=== PATIENT | male | born 1985 | race Caucasian/White ===

== ENCOUNTER 2017-10-12 15:19 | Emergency (ER) | payer BC ==
[2017-10-12] MEDS ORDERED: KETOROLAC TROMETHAMINE INJ/PF 30 MG/1 ML SDV IV ONE (16:56)
[2017-10-12] MEDS ORDERED: DIPHENHYDRAMINE HCL 50 MG/ML VIAL IV ONE (16:56)
[2017-10-12] MEDS ORDERED: PROCHLORPERAZINE EDISYLATE INJ 10 MG/2 ML VIAL IV ONE (16:56)
[2017-10-12] MEDS ORDERED: IPRATROPIUM/ALBUTEROL 0.5-2.5 MG/3 ML AMPUL NEB ONE (17:01)
--- NOTE | 2017-10-12 17:03 | ER Document Report ---
HPI - HPI Pain Level: 4 Notes: Patient is a 32-year-old male with no significant past medical history who presents to the ED complaining of feeling feverish, nasal congestion/discharge, sinus pressure/sinus headache, dry semiproductive cough, nausea/vomiting 10 days. Patient states that he has been having difficulties keeping fluids down over the last few days and believes that his intermittent headache has been causing his nausea. Patient does not have any abdominal pain. He has taken some pwax-mnm-wzexqen meds with minimal relief. Patient states that there was an illness spreading around his house initially and when he got it it never went away. He denies any smoking or IV drug use. Denies any drug allergies. Denies any head injury, neck pain, changes in vision/speech/mentation/hearing, sore throat, chest pain, palpitations, syncope, shortness of breath, wheeze, dyspnea, abdominal pain, urinary retention, dysuria, hematuria, loss of control of bowel or bladder, numbness/tingling, saddle anesthesia, muscle paralysis/ weakness, or rash. - ROS Systems Reviewed and Negative: Yes All other systems reviewed and negative - CONSTITUTIONAL Constitutional: DENIES: Fever, Chills - EENT EENT: DENIES: Sore Throat, Ear Pain, Eye problems - NEURO Neurology: REPORTS: Headache - Sinus, Weakness. DENIES: Vision blurred, Dizzinesss / Vertigo - CARDIOVASCULAR Cardiovascular: DENIES: Chest pain - RESPIRATORY Respiratory: REPORTS: Coughing. DENIES: Trouble Breathing - GASTROINTESTINAL Gastrointestinal: DENIES: Abdominal Pain, Black / Bloody Stools - URINARY Urinary: DENIES: Dysuria, Urgency, Frequency - MUSCULOSKELETAL Musculoskeletal: DENIES: Extremity pain Past Medical History - Social History Smoking Status: Never Smoker Family History: Reviewed & Not Pertinent Patient has suicidal ideation: No Patient has homicidal ideation: No Renal/ Medical History: Denies: Hx Peritoneal Dialysis Vertical Provider Document - CONSTITUTIONAL Agree With Documented VS: Yes Notes: PHYSICAL EXAMINATION: GENERAL: Well-appearing, well-nourished and in no acute distress. A&Ox4. Answers questions appropriately. Moves comfortably w/o notable distress HEAD: Atraumatic, normocephalic. EYES: Pupils equal round and reactive to light, extraocular movements intact, sclera anicteric, conjunctiva are normal. Vis dupont intact. No nystagmus. ENT: EAC clear b/l. TM's intact b/l without erythema, fluid, or perforation. Nares patent and with clear/yellow discharge. oropharynx no erythema without exudates. No tonsilar hypertrophy without erythema or exudate. No palatine shift. Uvula midline. No tongue protrusion. No drooling, hoarseness, or airway compromise. Moist mucous membranes. + b/l maxillary sinus tenderness. NECK: Normal range of motion, supple without lymphadenopathy. No rigidity/ meningismus. Kernig/brudzinski negative. LUNGS: wheezes b/l base. No retractions HEART: Regular rate and rhythm without murmurs, rubs, gallops. ABDOMEN: Soft, nontender, nondistended abdomen. No guarding, no rebound. No masses appreciated. Normal bowel sounds present. No CVA tenderness bilaterally. NEUROLOGICAL: Cranial nerves grossly intact 2-12. NIH 0. Normal speech, normal gait. Normal sensory, motor exams. KATHLEEN's intact. Reflexes 2+. Pronator drift neg. Romberg neg. PSYCH: Normal mood, normal affect. SKIN: Warm, Dry, normal turgor, no rashes or lesions noted. - INFECTION CONTROL TRAVEL OUTSIDE OF THE [place] IN LAST 30 DAYS: No Course - Re-evaluation Re-evalutation: 10/12/17 18:45 Patient is a 32-year-old male who presents to the ED with a moderate pneumonia of the right middle lobe. CBC showed an elevated white blood cell count at 22.2 with a left shift. CMP and lipase are unremarkable for any acute pathology. See chest x-ray result. Patient has received 2 L normal saline and was given Toradol, Benadryl, and Compazine. Overall, patient states that he feels much better. P.o. challenge was initiated. This appears to be a community-acquired pneumonia and patient is an otherwise healthy young adult with [employer] insurance. Rocephin ordered IV and Levaquin 750 mg given p.o. today. I did review this case with Dr. Batista and as long as patient's vitals remain stable/acceptable, ambulatory oxygen is maintained over 95%, no development of shortness of breath or dyspnea, and patient is tolerating p.o. without any difficulties as well as patient is feeling better, then we will continue management as an outpatient. If he fails any of these measures, we will admit. Reviewed this case with the patient as well who is in agreement at this time. 10/12/17 20:03 Patient is tolerating p.o. without any difficulties. His ambulatory oxygen maintain out 100% with a maximum heart rate of 110. Patient has otherwise been in the high 90s for his heart rate. Patient states that he feels much better and does not have any residual nausea. Patient has not had any episodes of emesis throughout his stay in the emergency department today. Patient prefers to go home and try outpatient measures. I did review with the patient that if he has any worsening symptoms he needs to return to the emergency department for probable admittance. Patient's symptomatology does not correspond with ACS , PE, pneumothorax, pericarditis, dissection. I will send him home with a prescription for Levaquin to finish the remaining 4 days. I will also send him home with a prescription for Zofran. Advised recheck with your PCM in 2-3 days. Return to the ED with any worsening/concerning symptoms otherwise as reviewed discharge. Patient is in agreement. - Vital Signs Vital signs: Temp Pulse Resp BP Pulse Ox 100.3 F 115 H 16 126/79 H 98 10/12/17 15:35 10/12/17 15:35 10/12/17 15:35 10/12/17 15:35 10/12/17 15:35 - Laboratory Result Diagrams: 10/12/17 17:30 10/12/17 17:30 Discharge - Discharge Clinical Impression: Right middle lobe pneumonia Qualifiers: Pneumonia type: due to unspecified organism Qualified Code(s): J18.1 - Lobar pneumonia, unspecified organism Condition: Stable Disposition: HOME, SELF-CARE Instructions: Pneumonia ([facility]), Levofloxacin Additional Instructions: Maintain adequate fluid intake Take meds as directed tylenol/ibuprofen as needed over the counter cold medication as needed for symptoms Humidified air may help Wash your hands regularly Wear a mask when coughing F/u: with your PCM in 3-5 days for a recheck Return to the ED with any worsening fever, chest pain, palpitations, syncope, worsening BOO, neck pain/stiffness, shortness of breath, wheezing, drooling, trouble swallowing/breathing, abdominal pain, n/v/d, rash, or worsening/ concerning symptoms otherwise. Prescriptions: Levofloxacin [Levaquin 750 mg Tablet] 750 mg PO DAILY #4 tablet Referrals: SOPHIA DALAL MD [NO LOCAL MD] - 10/14/17
[2017-10-12] MEDS: NORMAL SALINE 1000 ML 1,000 ML IV PRN ×2 (17:21→17:22)
[2017-10-12 17:50] LABS: HEMATOCRIT 40.6 % (37.9-51.0); HEMOGLOBIN 13.4 g/dL (13.5-17.0); MEAN CORPUSCULAR HEMOGLOBIN 27.5 pg (27.0-33.4); MEAN CORPUSCULAR HGB CONC 32.9 g/dL (32.0-36.0); MEAN CORPUSCULAR VOLUME 84 fl (80-97); PLATELET COUNT 327 10^3/uL (150-450); RED BLOOD COUNT 4.86 10^6/uL (4.35-5.55); RED CELL DISTRIBUTION WIDTH 13.5 % (11.5-14.0); WHITE BLOOD COUNT 22.2 10^3/uL (4.0-10.5)
[2017-10-12 17:50] LABS: A TYPE INFLUENZA AG NEGATIVE (NEGATIVE); B INFLUENZA AG NEGATIVE (NEGATIVE)
[2017-10-12 18:06] LABS: ABSOLUTE LYMPHOCYTES# (MANUAL) 1.6 10^3/uL (0.5-4.7); ABSOLUTE MONOCYTES # (MANUAL) 1.6 10^3/uL (0.1-1.4); ABSOLUTE NEUTROPHILS# (MANUAL) 19.1 10^3/uL (1.7-8.2); BASOPHILS % (MANUAL) 0 % (0-2); EOSINOPHILS % (MANUAL) 0 % (0-6); LYMPHOCYTES % (MANUAL) 7 % (13-45); MONOCYTES % (MANUAL) 7 % (3-13); SEGMENTED NEUTROPHILS % (MAN) 86 % (42-78); TOTAL CELLS COUNTED 100
[2017-10-12 18:07] LABS: ALANINE AMINOTRANSFERASE 45 U/L (21-72); ALKALINE PHOSPHATASE 126 U/L (38-126); ANION GAP 15 (5-19); ASPARTATE AMINO TRANSFERASE 20 U/L (17-59); BILIRUBIN,DIRECT 0.3 mg/dL (0.0-0.4); BILIRUBIN,TOTAL 0.6 mg/dL (0.2-1.3); BLOOD UREA NITROGEN 13 mg/dL (7-20); CARBON DIOXIDE 26 mmol/L (22-30); CHLORIDE 98 mmol/L (98-107); GLUCOSE 103 mg/dL (75-110); LIPASE 19.6 U/L (23-300); POTASSIUM 3.8 mmol/L (3.6-5.0); RBC MORPHOLOGY COMMENT NORMO-CYTIC/CHROMIC; SODIUM 139.1 mmol/L (137-145); TOTAL PROTEIN 6.8 g/dL (6.3-8.2); TOXIC GRANULATION 1+
[2017-10-12 18:08] LABS: PLATELET COMMENT ADEQUATE
--- NOTE | 2017-10-12 18:37 | RADIOLOGY REPORT (SQ) ---
EXAM DESCRIPTION: CHEST 2 VIEWS COMPLETED DATE/TIME: 10/12/2017 6:15 pm REASON FOR STUDY: cough COMPARISON: None. EXAM PARAMETERS: NUMBER OF VIEWS: two views TECHNIQUE: Digital Frontal and Lateral radiographic views of the chest acquired. RADIATION DOSE: NA LIMITATIONS: none FINDINGS: LUNGS AND PLEURA: Moderate consolidation in the lateral aspect of the right middle lobe. No pneumothorax. No pleural effusion. MEDIASTINUM AND HILAR STRUCTURES: No masses or contour abnormalities. HEART AND VASCULAR STRUCTURES: Heart normal size. No evidence for failure. BONES: No acute findings. HARDWARE: None in the chest. OTHER: No other significant finding. IMPRESSION: Moderate consolidation in the lateral aspect of the right middle lobe. TECHNICAL DOCUMENTATION: JOB ID: [id number] [id number] [employer] All Rights Reserved Reading location - IP/workstation name: [email or web address]
[2017-10-12] MEDS ORDERED: LEVOFLOXACIN 750 MG TABLET PO ONE (18:58)
[2017-10-12 19:50] VITALS: BP 107/70
[2017-10-12] MEDS ORDERED: CEFTRIAXONE INJ 1000 MG VIAL ONE (19:51)
[2017-10-12] MEDS ORDERED: CEFTRIAXONE 1 GM/D5W RTU 1 GM/50 ML RTUPB IV ONE (20:00)
== END 2017-10-12 20:35 | disposition home or self-care (01) ==
LOC: ER 15:19
DX: J18.1 Lobar pneumonia, unspecified organism (principal); R50.9 Fever, unspecified; R09.89 Other specified symptoms and signs involving the circulatory and respiratory systems; R51 Headache; R05 Cough; R11.2 Nausea with vomiting, unspecified
CPT/HCPCS: 94640; 99283; 96361; 96375; 96365; 36415; 83690; 85025; 80053; 87804; 71046; J1200; J1885; J0780; J0696; J7030; J7620